=== PATIENT | female | born 1995 | race Caucasian/White ===

== ENCOUNTER 2018-03-11 17:31 | Emergency (ER) | payer BC ==
[2018-03-11] MEDS ORDERED: Ibuprofen TAB* 600 MG PO ONE (19:45)
--- NOTE | 2018-03-11 19:58 | UC ---
Respiratory Complaint HPI - HPI Summary HPI Summary: C/O cough with fevers, congestion and frontal sinus pain x 1 day. No SOB. positive Chills. - History of Current Complaint Chief Complaint: UCRespiratory Stated Complaint: CHILLS,SINUS COMPLAINT Time Seen by Provider: 03/11/18 19:40 Hx Obtained From: Patient Hx Last Menstrual Period: 10weeks ?: No Onset/Duration: Sudden Onset, Lasting Days - 1, Worse Since - onset Severity Initially: Mild Severity Currently: Moderate Pain Intensity: 7 Character: Cough: Nonproductive Associated Signs And Symptoms: Positive: Fever, Chills, URI, Nasal Congestion, Sinus Discomfort - Allergies/Home Medications Allergies/Adverse Reactions: Allergies Allergy/AdvReac Type Severity Reaction Status Date / Time No Known Allergies Allergy Verified 03/11/18 18:08 Home Medications: Home Medications Diphenhydram/PE/Dm/Acetamin/GG [Mucinex Fast-Max Day-Nite Terence] 1 each PO DAILY PRN 03/11/18 [History Confirmed 03/11/18] Diphenhydram/PE/Dm/Acetamin/GG [Mucinex Fast-Max Day-Nite Terence] 1 tab PO QPM PRN 03/11/18 [History Confirmed 03/11/18] l-Norgest/E.estradiol-E.estrad [Camrese 0.15-0.03-0.01 mg Tab] 1 each PO DAILY 03/11/18 [History Confirmed 03/11/18] PMH/Surg Hx/FS Hx/Imm Hx Previously Healthy: Yes - Surgical History Surgical History: Yes Surgery Procedure, Year, and Place: left jaw 01/20/18 - Family History Known Family History: Negative: Diabetes - Social History Occupation: Student Lives: Dormitory/Roommates Alcohol Use: None Substance Use Type: None Smoking Status (MU): Never Smoked Tobacco Review of Systems All Other Systems Reviewed And Are Negative: Yes Constitutional: Positive: Fever, Chills, Fatigue ENT: Positive: Sore Throat, Sinus Congestion Respiratory: Positive: Cough Musculoskeletal: Positive: Myalgia Neurological: Positive: Headache Is Patient Immunocompromised?: No Physical Exam Triage Information Reviewed: Yes Appearance: No Pain Distress, Well-Nourished, Ill-Appearing Vital Signs: Initial Vital Signs Temp 98.7 F 03/11/18 18:12 Pulse 104 03/11/18 18:12 Resp 20 03/11/18 18:12 BP 126/72 03/11/18 18:12 Pulse Ox 99 03/11/18 18:12 Vital Signs Reviewed: Yes Eyes: Positive: Conjunctiva Inflamed ENT: Positive: Pharynx normal, Nasal congestion, TMs normal Neck exam: Normal Respiratory Exam: Normal Cardiovascular Exam: Normal Abdomen Description: Positive: Nontender, No Organomegaly, Soft Musculoskeletal Exam: Normal Neurological Exam: Normal Psychological Exam: Normal Skin Exam: Normal UC Diagnostic Evaluation - Laboratory Pertinent Lab Values Are: WNL O2 Sat by Pulse Oximetry: 99 Respiratory Course/Dx - Differential Dx/Diagnosis Differential Diagnosis/HQI/PQRI: Asthma, Lower Resp Infection, Sinusitis Provider Diagnosis: Upper respiratory infection, acute Discharge - Sign-Out/Discharge Documenting (check all that apply): Patient Departure All imaging exams completed and their final reports reviewed: No Studies - Discharge Plan Condition: Stable Disposition: HOME Patient Education Materials: Upper Respiratory Infection (DC) Referrals: No Primary Care Phys,NOPCP [Primary Care Provider] - If Needed (if worsening sinus pain with fevers after 4 days or worsening cough with wheezing.) Additional Instructions: NASAL SPRAYS AND DROPS: Afrin in the PUMP/ MIST bottle (Get generic 12 hours nasal decongestant spray). Tilt your head down and look at the floor while doing a strong sniff with the spray. Decongestant nasal sprays and drops often give dramatic relief from congestion. They are often recommended for patients with sinus infection to assist with sinus drainage. Persons with high blood pressure should consult the doctor before using these nasal sprays. Afrin and Ivan-Synephrine are common aayp-oyd-[id number] preparations. They should not be used for more than five days, as "rebound" congestion can occur - - the congestion flares as the drug wears off. A way of dealing with this rebound congestion problem is to medicate only one nostril each time, allowing the other nostril to recover from the medicine' s effects. When you no longer need the drug during the day, spray only one nostril each night. This helps you sleep well without severe rebound congestion. Call the doctor if you develop severe headache, palpitations, or chest pain. - Billing Disposition and Condition Condition: STABLE Disposition: Home
[2018-03-11 20:17] LABS: Influenza A Molecular NEGATIVE (Negative); Influenza B Molecular NEGATIVE (Negative)
[2018-03-11 20:34] VITALS: BP 117/56
== END 2018-03-11 20:41 | disposition home or self-care (01) ==
LOC: UCCORT 17:31
DX: J06.9 Acute upper respiratory infection, unspecified (principal); M79.10 Myalgia, unspecified site; H57.89 Other specified disorders of eye and adnexa
CPT/HCPCS: 99202; A9270-GY; G0463